=== PATIENT | male | born 1980 | race Caucasian/White ===

== ENCOUNTER 2018-08-02 16:38 | Emergency (ER) | payer MEDICAID ==
[~2018-08-02] VITALS: Ht 162.6 cm; Wt 73.9 kg
[2018-08-02 16:48] VITALS: Ht 162.6 cm; Wt 73.9 kg
[2018-08-02 17:23] VITALS: BP 130/71
== END 2018-08-02 17:23 | disposition home or self-care (01) ==
LOC: ED 16:38
DX: M54.40 Lumbago with sciatica, unspecified side (principal)
CPT/HCPCS: J1885